=== PATIENT | female | born 1965 | race Asian ===

== ENCOUNTER 2018-10-07 14:30 | Inpatient (IN) | payer OTHER ==
[~2018-10-07] VITALS: Ht 160 cm; Wt 73.5 kg
--- NOTE | 2018-10-07 14:40 | NUR ---
ADMIT TO 2A, 53 YO FEMALE, AMBULATORY, AAOX3 WITH A C/O FEVER AND ABDOMENAL PAIN.
[2018-10-07] MEDS ORDERED: [UNRECOGNIZED DRUG - OTHER] (14:43)
[2018-10-07] MEDS ORDERED: PANTOPRAZOLE SODIUM 40 MG VIAL IV ONE (15:00)
[2018-10-07] MEDS ORDERED: IV NORMAL SALINE 1000 ML BAG IV ONE (15:00)
[2018-10-07] MEDS ORDERED: ONDANSETRON 4 MG/2 ML VIAL IV ONE (15:00)
[2018-10-07] MEDS ORDERED: ACETAMINOPHEN ES 500 MG TABLET PO ONE (15:00)
--- NOTE | 2018-10-07 15:00 | NUR ---
SEEN AND EXAMINED BY MD WITH NEW ORDERS. PT MEDICATED WITH TYLENOL ES 1GM PO FOR TEMP OF 102.5F ORDERED.
[2018-10-07] MEDS ORDERED: ACETAMINOPHEN ES 500 MG TABLET ONE (15:03)
[2018-10-07 15:18] LABS: BASOPHILS % (AUTO) 0.3 % (0.0-2.0); HEMATOCRIT 52.8 % (31.2-41.9); HEMOGLOBIN 17.6 g/dL (10.9-14.3); LYMPHOCYTES # (AUTO) 0.5 K/uL (20.0-40.0); LYMPHOCYTES % (AUTO) 3.3 % (20.5-51.5); MEAN CORPUSCULAR HEMOGLOBIN 28.6 uug (24.7-32.8); MEAN CORPUSCULAR HGB CONC 33 g/dL (32.3-35.6); MEAN CORPUSCULAR VOLUME 85.9 fL (75.5-95.3); MONOCYTES # (AUTO) 0.6 K/uL (2.0-10.0); NEUTROPHILS # (AUTO) 14.7 K/uL (1.8-8.9); NEUTROPHILS % (AUTO) 92.4 % (38.5-71.5); PLATELET COUNT (AUTO) 222 K/uL (179-408); RED BLOOD CELL COUNT(AUTO) 6.15 MIL/uL (3.63-4.92); WHITE BLOOD COUNT (AUTO) 15.9 K/uL (3.8-11.8)
--- NOTE | 2018-10-07 15:20 | NUR ---
STARTED IV LINE ON THE RT WRIST G22 AND STARTED IVF NS 1L INFUSING WIDE OPEN.
[2018-10-07] MEDS ORDERED: PANTOPRAZOLE SODIUM 40 MG VIAL ONE (15:26)
[2018-10-07] MEDS ORDERED: ONDANSETRON 4 MG/2 ML VIAL ONE (15:26)
[2018-10-07 15:29] LABS: CREATININE 1.1 mg/dL (0.6-1.3); POTASSIUM 3.2 mmol/L (3.5-5.1)
[2018-10-07 15:34] LABS: BILIRUBIN,DIRECT 0.2 mg/dL (0.0-0.2); BILIRUBIN,TOTAL 0.6 mg/dL (0.2-1.0); TOTAL PROTEIN, SERUM 6.8 g/dL (6.4-8.2)
[2018-10-07 15:40] LABS: BAND % (MANUAL) 16 % (0-10); LYMPHOCYTES % (MANUAL) 2 % (20-40); MONOCYTES % (MANUAL) 8 % (2-10); NEUTROPHILS % (MANUAL) 74 % (42-75)
[2018-10-07 16:31] LABS: *BILIRUBIN,URIN 1+ (NEGATIVE); *BLOOD, URINE 3+ (NEGATIVE); *CLARITY,URINE SLIGHTLY CLOUDY (CLEAR); *KETONES,URINE NEGATIVE (NEGATIVE); *UROBILINOGEN,URINE 0.2 E.U./dl (NORMAL); LEUKOCYTE ESTERASE ,URINE NEGATIVE (NEGATIVE); NITRITE, URINE NEGATIVE (NEGATIVE); UGLUCOSE NEGATIVE (NEGATIVE)
[2018-10-07 16:39] LABS: *COLOR,URINE AMBER (YELLOW)
[2018-10-07 16:43] LABS: RBC,URINE 80-100 /HPF (0-3); SQUAMOUS EPITHELIAL CELL,UR FEW /HPF (NONE SEEN)
[2018-10-07 16:44] LABS: MUCUS,URINE MANY /LPF (0-FEW)
--- NOTE | 2018-10-07 16:50 | NUR ---
PT HAS A LIQUID BLOODY BM IN THE BATHROOM. AWARE. CT SCAN ABDOMEN ORDERED.
--- NOTE | 2018-10-07 16:55 | NUR ---
GIVEN SOME JELLO TO EAT, OK WITH . TOLERATED WELL.
--- NOTE | 2018-10-07 17:05 | NUR ---
PT IS ADMITTED TO 317. REPORT GIVEN TO ROMMEL AKINS.
--- NOTE | 2018-10-07 17:10 | NUR ---
PT GOING TO CT SCAN VIA W/C, THEN GOING STRAIGHT TO [facility] 317 AFTER.
--- NOTE | 2018-10-07 17:11 | NUR ---
STOOL SENT TO LAB.
[2018-10-07 17:30] VITALS: BP 136/85
--- NOTE | 2018-10-07 17:30 | NUR ---
Patient is admit to med surge, VS stable WNL, no distress, complain of abd pain and diarrhea which will be addressed with md orders safety initiated care plan started
--- NOTE | 2018-10-07 17:30 | NUR ---
NOTIFIED FLOOR RN ROMMEL, BELONGING LIST NOT DONE PT WENT STRAIGHT TO CT.
[2018-10-07] MEDS ORDERED: ACETAMINOPHEN 650 MG SUPP.RECT RC PRN (18:15)
[2018-10-07] MEDS: MORPHINE SULFATE 2 MG/1 ML DISP.SYRIN IV PRN ×2 (19:00→21:53)
[2018-10-07] MEDS: POTASSIUM CHLORIDE 20 MEQ in IV D5/ 0.9% NACL 1,000 ML IV PRN (19:05)
[2018-10-07] MEDS: LEVOFLOXACIN 500 MG/D5W 500 MG in PREMIXED 1 EACH IV SCH (19:05)
--- NOTE | 2018-10-07 19:22 | NUR ---
Patient in Bed, awake and verbally responsive. No signs of Respiratory distress noted. with complain of Pain on Lower Abdomen, Morphine given as ordered. Will Assess after 30 minutes. IV antibiotic started. All needs attended and met. Will Endorse to Oncoming Nurse.
--- NOTE | 2018-10-07 20:00 | NUR ---
Received patient laying in bed. MD at bedside. Patient c/o abdominal pain. In room air. IVF infusing on the right hand. Patient is alert and oriented x 4. Ambulatory with minimal assist. NPO. Safety initiated. Call light within reach. Will closely monitor.
[2018-10-07] MEDS: FAMOTIDINE. 20 MG/2 ML VIAL IV SCH (20:28)
[2018-10-07 20:36] VITALS: BP 134/88
[2018-10-07] MEDS: METRONIDAZOLE 500 MG/NS 100ML 500 MG in PREMIXED 1 EACH IV SCH (21:52)
[2018-10-08] MEDS: ONDANSETRON 4 MG/2 ML VIAL IV PRN ×5 (01:03→18:07)
[2018-10-08] MEDS: MORPHINE SULFATE 2 MG/1 ML DISP.SYRIN IV PRN ×5 (01:04→18:07)
[2018-10-08 04:48] VITALS: BP 109/69
[2018-10-08] MEDS: METRONIDAZOLE 500 MG/NS 100ML 500 MG in PREMIXED 1 EACH IV SCH ×3 (05:00→22:42)
--- NOTE | 2018-10-08 05:48 | NUR ---
Patient was not able to have a good night's rest. Patient went multiple times to the restroom to make a bowel movement. Patient's stool was dark red in color with some sediments. Patient c/o pain in the abdomen and nausea but no vomiting. Patient remains in room air. Patient's IV on the right hand, patent and intact with IVF infusing. Vital signs stable with no temperature. Patient ambulates with standby assists. Maintained NPO. Safety and comfort measures maintained t/o shift. All meds given as ordered. All needs met.
--- NOTE | 2018-10-08 07:20 | NUR ---
Patient in bed resting with no s/s of acute distress noted at this time. Patient is NPO. No c/o pain at this time . Will continue to monitor.
[2018-10-08] MEDS: FAMOTIDINE. 20 MG/2 ML VIAL IV SCH ×2 (09:17→20:04)
[2018-10-08] MEDS: POTASSIUM CHLORIDE 20 MEQ in IV D5/ 0.9% NACL 1,000 ML IV PRN (09:50)
[2018-10-08 10:37] LABS: BASOPHILS % (AUTO) 0.1 % (0.0-2.0); HEMATOCRIT 57.3 % (31.2-41.9); HEMOGLOBIN 19.1 g/dL (10.9-14.3); LYMPHOCYTES # (AUTO) 0.8 K/uL (20.0-40.0); LYMPHOCYTES % (AUTO) 4.7 % (20.5-51.5); MEAN CORPUSCULAR HEMOGLOBIN 28.7 uug (24.7-32.8); MEAN CORPUSCULAR HGB CONC 33 g/dL (32.3-35.6); MEAN CORPUSCULAR VOLUME 86.2 fL (75.5-95.3); MONOCYTES # (AUTO) 0.9 K/uL (2.0-10.0); MONOCYTES % (AUTO) 5.6 % (0.0-11.0); NEUTROPHILS # (AUTO) 14.2 K/uL (1.8-8.9); NEUTROPHILS % (AUTO) 89.6 % (38.5-71.5); PLATELET COUNT (AUTO) 187 K/uL (179-408); WHITE BLOOD COUNT (AUTO) 15.9 K/uL (3.8-11.8)
[2018-10-08 10:47] LABS: CREATININE 1.4 mg/dL (0.6-1.3)
[2018-10-08 10:53] LABS: BILIRUBIN,TOTAL 0.3 mg/dL (0.2-1.0); MAGNESIUM 1.9 mg/dL (1.8-2.4); PHOSPHOROUS 3.1 mg/dL (2.5-4.9); TOTAL PROTEIN, SERUM 5.4 g/dL (6.4-8.2)
[2018-10-08 10:59] LABS: RED BLOOD CELL COUNT(AUTO) 6.65 MIL/uL (3.63-4.92)
[2018-10-08 11:26] VITALS: BP 122/84
[2018-10-08 11:30] LABS: BAND % (MANUAL) 25 % (0-10); LYMPHOCYTES % (MANUAL) 6 % (20-40); METAMYELOCYTES % 2 % (0-1); MONOCYTES % (MANUAL) 5 % (2-10); NEUTROPHILS % (MANUAL) 62 % (42-75)
[2018-10-08 15:11] VITALS: BP 110/82
[2018-10-08] MEDS: LEVOFLOXACIN 500 MG/D5W 500 MG in PREMIXED 1 EACH IV SCH (18:18)
--- NOTE | 2018-10-08 18:50 | NUR ---
Patient resting in bed with no s/s of acute distress noted at this time. C/O pain and prn pain meds given as ordered. will continue to monitor.call light within reached.
--- NOTE | 2018-10-08 20:00 | NUR ---
Received patient laying in bed. Patient is alert and oriented x 4. Patient c/o abdominal pain but "its not as bad as yesterday. Diet was advanced to clear liquid diet. According to patient, she is tolerating it. Patient reports multiple trips to the restroom. In room air. IVF infusing on the right hand. Ambulatory with minimal assist. Safety initiated. Call light within reach. Will closely monitor.
[2018-10-08 20:05] VITALS: BP 139/97
[2018-10-09] MEDS: MORPHINE SULFATE 2 MG/1 ML DISP.SYRIN IV PRN ×5 (03:43→22:26)
[2018-10-09] MEDS: ONDANSETRON 4 MG/2 ML VIAL IV PRN ×3 (03:43→22:27)
--- NOTE | 2018-10-09 03:43 | NUR ---
Emesis x 1. She drank the Ensure strawberry clear liquid drink and described her emesis as color pink as the Ensure drink. Zofran given. Will continue to monitor.
--- NOTE | 2018-10-09 05:29 | NUR ---
Patient slept intermittently t/o shift. C/O abd. pain and emesis x 1. Medication given, stated relief. Patient remains A/O x 4. Ambulatory with standby assists. Patient's IV on the right hand got infiltrated. Re-started an IV on the left FA, patent and intact. Bowels sounds active. Patient remains on clear liquid diet, not tolerating at the moment. Vital signs stable. Good urine output. All meds given as ordered. All needs met. Safety and comfort measures maintained t/o shift.
[2018-10-09 05:53] LABS: HEMATOCRIT 51.5 % (31.2-41.9); HEMOGLOBIN 17.2 g/dL (10.9-14.3); MEAN CORPUSCULAR HEMOGLOBIN 28.6 uug (24.7-32.8); MEAN CORPUSCULAR HGB CONC 33 g/dL (32.3-35.6); MEAN CORPUSCULAR VOLUME 85.8 fL (75.5-95.3); PLATELET COUNT (AUTO) 193 K/uL (179-408); RED BLOOD CELL COUNT(AUTO) 6.01 MIL/uL (3.63-4.92); WHITE BLOOD COUNT (AUTO) 17.2 K/uL (3.8-11.8)
[2018-10-09] MEDS: METRONIDAZOLE 500 MG/NS 100ML 500 MG in PREMIXED 1 EACH IV SCH ×3 (05:54→22:11)
[2018-10-09 06:04] LABS: BILIRUBIN,TOTAL 0.3 mg/dL (0.2-1.0); CREATININE 1.5 mg/dL (0.6-1.3); MAGNESIUM 1.7 mg/dL (1.8-2.4); PHOSPHOROUS 2.6 mg/dL (2.5-4.9); POTASSIUM 4.1 mmol/L (3.5-5.1); TOTAL PROTEIN, SERUM 5.1 g/dL (6.4-8.2)
[2018-10-09 06:07] LABS: THYROID STIMULATING HORMONE 0.344 mIU/mL (0.358-3.740)
[2018-10-09 06:34] VITALS: BP 130/66
[2018-10-09 07:01] LABS: BAND % (MANUAL) 32 % (0-10); BASOPHILS % (MANUAL) 0 % (0-2); EOSINOPHILS % (MANUAL) 0 % (0-8); LYMPHOCYTES % (MANUAL) 4 % (20-40); MONOCYTES % (MANUAL) 12 % (2-10); NEUTROPHILS % (MANUAL) 52 % (42-75)
--- NOTE | 2018-10-09 07:51 | NUR ---
Awake, alert, oriented x 4. IVF infusing. With abdominal pain. Discussed plan of care
[2018-10-09] MEDS: FAMOTIDINE. 20 MG/2 ML VIAL IV SCH (08:30)
--- NOTE | 2018-10-09 08:30 | NUR ---
With abdominal pain and nausea. Morphine and Zofran given.
[2018-10-09] MEDS: POTASSIUM CHLORIDE 20 MEQ in IV D5/ 0.9% NACL 1,000 ML IV PRN (10:58)
[2018-10-09 11:52] VITALS: BP 142/93
[2018-10-09] MEDS ORDERED: MAGNESIUM SULFATE/D5W 100 ML IV SCH (15:00)
--- NOTE | 2018-10-09 15:44 | NUR ---
Patient not tolerating clear liquid diet and still abdominal pain. Dr. Cohn informed with orders. NPO instructed
[2018-10-09 16:00] VITALS: BP 138/91
--- NOTE | 2018-10-09 18:09 | NUR ---
NPO maintained. IVF infusing.
[2018-10-09] MEDS: LEVOFLOXACIN 500 MG/D5W 500 MG in PREMIXED 1 EACH IV SCH (18:31)
--- NOTE | 2018-10-09 19:20 | NUR ---
Received patient lying in bed. AAOx4. In no acute distress. Pain on abdominal area tolerable at this time per patient. Denies any SOB. IV site on left FA intact and patent. IVF infusing. NPO status. Needs assessed and attended to. Safety measure initiated and call schilling within reach.
[2018-10-09 20:17] VITALS: BP 117/79
[2018-10-09] MEDS ORDERED: FAMOTIDINE 20 MG TABLET PO SCH (21:00)
[2018-10-10] MEDS: POTASSIUM CHLORIDE 20 MEQ in IV D5/ 0.9% NACL 1,000 ML IV PRN (03:20)
[2018-10-10] MEDS: METRONIDAZOLE 500 MG/NS 100ML 500 MG in PREMIXED 1 EACH IV SCH ×3 (05:49→21:15)
--- NOTE | 2018-10-10 06:32 | NUR ---
Remains AOx4. In no acute distress. Morphine 2mg IV given x1 for complain of abdominal pain and effective. Complain of nausea and given Zofran 4mg IVX1 and effective. Denies any SOB. IV site on left FA intact and patent. IVF infusing. No adverse reaction from IV ABX. Remains NPO. Needs attended to and met. Patient had total of 6 BM still foamy, brown in color and with some soft stool per patient. Safety measure maintained and call schilling within reach.
[2018-10-10 06:47] VITALS: BP 120/65
--- NOTE | 2018-10-10 07:15 | NUR ---
patient alert and oriented and awake , able to make needs known, no s/s of scute distress noted at this time. no c/o pain at this time , safety and comfort provided at all times will continue to monitor.
[2018-10-10 07:57] LABS: CREATININE 1.1 mg/dL (0.6-1.3); MAGNESIUM 2.2 mg/dL (1.8-2.4); PHOSPHOROUS 1.6 mg/dL (2.5-4.9)
[2018-10-10 08:25] LABS: HEMATOCRIT 43.3 % (31.2-41.9); HEMOGLOBIN 14.3 g/dL (10.9-14.3); MEAN CORPUSCULAR HEMOGLOBIN 28.5 uug (24.7-32.8); MEAN CORPUSCULAR HGB CONC 33 g/dL (32.3-35.6); MEAN CORPUSCULAR VOLUME 86.3 fL (75.5-95.3); PLATELET COUNT (AUTO) 173 K/uL (179-408); RED BLOOD CELL COUNT(AUTO) 5.02 MIL/uL (3.63-4.92); WHITE BLOOD COUNT (AUTO) 15.4 K/uL (3.8-11.8)
[2018-10-10] MEDS ORDERED: FAMOTIDINE. 20 MG/2 ML VIAL IV SCH (09:00)
[2018-10-10 10:02] LABS: BAND % (MANUAL) 15 % (0-10); BASOPHILS % (MANUAL) 0 % (0-2); EOSINOPHILS % (MANUAL) 0 % (0-8); LYMPHOCYTES % (MANUAL) 10 % (20-40); MONOCYTES % (MANUAL) 6 % (2-10); NEUTROPHILS % (MANUAL) 69 % (42-75)
[2018-10-10] MEDS ORDERED: SODIUM PHOSPHATE MM 15 MM in IV DEXTROSE 5% 250 ML IV ONE (10:45)
[2018-10-10 11:19] VITALS: BP 125/64
[2018-10-10 15:23] VITALS: BP 115/80
--- NOTE | 2018-10-10 15:30 | NUR ---
Seen by GT Dr. Dee Dee Mak with New oreder of clear liquid diet and D/C NPO.
[2018-10-10] MEDS: VANCOMYCIN FOR PO/GT/NG USE PO SCH ×2 (18:14→23:41)
[2018-10-10] MEDS: LIDOCAINE 5% OINT 35.44 GM TUBE TOP SCH (18:37)
[2018-10-10] MEDS: LEVOFLOXACIN 500 MG/D5W 500 MG in PREMIXED 1 EACH IV SCH (18:38)
--- NOTE | 2018-10-10 19:20 | NUR ---
Received patient lying in bed. AAOx4. In no acute distress. Complained of abd. pain, will provide pain medication per order. Denies any SOB. IV site on right wrist intact and patent. IVF infusing. Needs assessed and attended to. Safety measure initiated and call schilling within reach.
--- NOTE | 2018-10-10 19:34 | NUR ---
patient alert and oriented and awake watching TV , able to make needs known, no s/s of acute distress noted at this time. no c/o pain at this time , safety and comfort provided at all times will continue to monitor.
[2018-10-10 20:06] VITALS: BP 120/58
[2018-10-10] MEDS: MORPHINE SULFATE 2 MG/1 ML DISP.SYRIN IV PRN (21:19)
[2018-10-11] MEDS: POTASSIUM CHLORIDE 20 MEQ in IV D5/ 0.9% NACL 1,000 ML IV PRN ×2 (02:33→21:38)
[2018-10-11] MEDS: METRONIDAZOLE 500 MG/NS 100ML 500 MG in PREMIXED 1 EACH IV SCH ×3 (05:06→21:37)
[2018-10-11] MEDS: VANCOMYCIN FOR PO/GT/NG USE PO SCH ×4 (05:06→23:02)
[2018-10-11 06:16] VITALS: BP 122/65
--- NOTE | 2018-10-11 06:17 | NUR ---
AOx4. In no acute distress. Morphine 2mg IV given x1 for complain of abdominal pain and effective. Denies any SOB. IV site on right wrist intact and patent. IVF infusing. No adverse reaction from IV and PO ABX. Needs attended to and met. Patient had total of 2 BM greenish in color, soft stool per patient. Safety measure maintained and call schilling within reach.
[2018-10-11 06:39] LABS: BASOPHILS % (AUTO) 0.1 % (0.0-2.0); EOSINOPHILS % (AUTO) 0.4 % (0.0-7.0); HEMATOCRIT 39.8 % (31.2-41.9); HEMOGLOBIN 13.2 g/dL (10.9-14.3); LYMPHOCYTES # (AUTO) 1.2 K/uL (20.0-40.0); LYMPHOCYTES % (AUTO) 10.8 % (20.5-51.5); MEAN CORPUSCULAR HEMOGLOBIN 28.5 uug (24.7-32.8); MEAN CORPUSCULAR HGB CONC 33 g/dL (32.3-35.6); MEAN CORPUSCULAR VOLUME 85.6 fL (75.5-95.3); MONOCYTES # (AUTO) 1.2 K/uL (2.0-10.0); MONOCYTES % (AUTO) 10.8 % (0.0-11.0); NEUTROPHILS % (AUTO) 77.9 % (38.5-71.5); PLATELET COUNT (AUTO) 177 K/uL (179-408); RED BLOOD CELL COUNT(AUTO) 4.65 MIL/uL (3.63-4.92); WHITE BLOOD COUNT (AUTO) 11.5 K/uL (3.8-11.8)
[2018-10-11 06:53] LABS: MAGNESIUM 1.9 mg/dL (1.8-2.4); PHOSPHOROUS 2.4 mg/dL (2.5-4.9); POTASSIUM 3.3 mmol/L (3.5-5.1)
--- NOTE | 2018-10-11 07:10 | NUR ---
PATIENT AOX4 IN BED SLEEPING EASY TO AROUSE. PATIENT DENIES N/V AT THIS TIME. PATIENT STATED THAT LAST BOWEL MOVEMENT WAS AT AROUND 0430 AND THAT IT WAS LOOSE AND GREEN. PATIENT COMPLAINED OF MILD ABDOMEN DISCOMFORT. DENIES SEVERE PAIN OR SOB. RT. WRIST IN INTACT. BED IN LOW AND LOCKED POSITION. CALL LIGHT IN REACH. WILL CONTINUE TO MONITOR.
[2018-10-11 07:48] LABS: *OCCULT BLOOD STOOL POSITIVE (NEGATIVE)
[2018-10-11 07:50] LABS: BAND % (MANUAL) 7 % (0-10); EOSINOPHILS % (MANUAL) 2 % (0-8); LYMPHOCYTES % (MANUAL) 6 % (20-40); MONOCYTES % (MANUAL) 11 % (2-10); NEUTROPHILS % (MANUAL) 74 % (42-75)
[2018-10-11] MEDS: PANTOPRAZOLE SODIUM 40 MG VIAL IV SCH (08:43)
[2018-10-11] MEDS: LIDOCAINE 5% OINT 35.44 GM TUBE TOP SCH ×2 (08:44→18:38)
[2018-10-11] MEDS ORDERED: POTASSIUM CHLORIDE 10 MEQ TAB.PRT.SR PO ONE (10:45)
[2018-10-11 11:26] VITALS: BP 116/76
[2018-10-11] MEDS: POTASSIUM PHOSPHATE MM 5 MMOL in IV DEXTROSE 5% 100 ML IV SCH ×2 (11:36→16:01)
[2018-10-11 15:21] VITALS: BP 124/76
--- NOTE | 2018-10-11 19:30 | NUR ---
patient received in bed a/ox4. no signs of acute distress. safety and comfort measures provided. will continue plan of care accordingly.
--- NOTE | 2018-10-11 19:40 | NUR ---
PATIENT AOX4. COMPLAINED OF MILD CRAMPING TO ABDOMEN BUT DID NOT WANT PAIN MEDICATION. MB GREEN IN COLOR. PATIENT STABLE THROUGHOUT THE SHIFT. REPORT GIVEN
[2018-10-11] MEDS: LEVOFLOXACIN 500 MG/D5W 500 MG in PREMIXED 1 EACH IV SCH (19:57)
[2018-10-11 20:04] VITALS: BP 128/69
[2018-10-12] MEDS: METRONIDAZOLE 500 MG/NS 100ML 500 MG in PREMIXED 1 EACH IV SCH (05:06)
[2018-10-12] MEDS: VANCOMYCIN FOR PO/GT/NG USE PO SCH ×2 (05:07→12:18)
[2018-10-12 05:59] VITALS: BP 116/74
[2018-10-12 06:51] LABS: CREATININE 0.8 mg/dL (0.6-1.3); POTASSIUM 3.3 mmol/L (3.5-5.1)
[2018-10-12 06:52] LABS: MAGNESIUM 1.7 mg/dL (1.8-2.4)
--- NOTE | 2018-10-12 06:53 | NUR ---
patient slept intermittently throughout the night. a/ox 4. no signs of acute distress. safety and comfort measures provided. all medications administered and tolerated well. will endorse care accordingly.
--- NOTE | 2018-10-12 07:15 | NUR ---
received patient in bed laying comfortably with no c/o pain at this time, no s/s of scute distress noted, safety measures and comfort provided at all times.
[2018-10-12] MEDS: POTASSIUM CHLORIDE 20 MEQ in IV D5/ 0.9% NACL 1,000 ML IV PRN (09:05)
[2018-10-12] MEDS: PANTOPRAZOLE SODIUM 40 MG VIAL IV SCH (09:26)
[2018-10-12] MEDS: LIDOCAINE 5% OINT 35.44 GM TUBE TOP SCH (09:26)
[2018-10-12 09:32] LABS: BASOPHILS % (AUTO) 0.3 % (0.0-2.0); EOSINOPHILS # (AUTO) 0.2 K/uL (0.0-0.7); EOSINOPHILS % (AUTO) 1.6 % (0.0-7.0); HEMATOCRIT 37.9 % (31.2-41.9); HEMOGLOBIN 12.9 g/dL (10.9-14.3); LYMPHOCYTES # (AUTO) 1.3 K/uL (20.0-40.0); LYMPHOCYTES % (AUTO) 12.1 % (20.5-51.5); MEAN CORPUSCULAR HEMOGLOBIN 28.7 uug (24.7-32.8); MEAN CORPUSCULAR HGB CONC 34 g/dL (32.3-35.6); MEAN CORPUSCULAR VOLUME 84.3 fL (75.5-95.3); MONOCYTES # (AUTO) 1.1 K/uL (2.0-10.0); MONOCYTES % (AUTO) 9.9 % (0.0-11.0); NEUTROPHILS # (AUTO) 8.4 K/uL (1.8-8.9); NEUTROPHILS % (AUTO) 76.1 % (38.5-71.5); PLATELET COUNT (AUTO) 199 K/uL (179-408)
[2018-10-12 11:08] VITALS: BP 113/76
[2018-10-12] MEDS ORDERED: VANC500V PO (12:13)
[2018-10-12] MEDS ORDERED: LEVO500T2 PO (12:13)
[2018-10-12] MEDS ORDERED: POTASSIUM CHLORIDE 20 MEQ TAB.PRT.SR PO ONE (12:15)
[2018-10-12] MEDS ORDERED: MAGNESIUM OXIDE 400 MG TABLET PO ONE (12:15)
--- NOTE | 2018-10-12 14:30 | NUR ---
Received orders to discharge patient to home . Discharge instruction given and prescribe medications explained to patient. No s/s of acute distress noted at this time, no c/o pain at this time noted. belongings accounted for and signed. IV and ID band removed. Questions and concerns addressed.
== END 2018-10-12 14:30 | disposition home or self-care (01) | DRG 871 ==
LOC: ER 14:32 → MEDSURG3 17:06
PROVIDERS: ADMIT Internal Medicine; ATTEND Internal Medicine
DX: A41.9 Sepsis, unspecified organism (principal); N17.0 Acute kidney failure with tubular necrosis; A04.9 Bacterial intestinal infection, unspecified; E44.0 Moderate protein-calorie malnutrition; R18.8 Other ascites; E05.90 Thyrotoxicosis, unspecified without thyrotoxic crisis or storm; E87.6 Hypokalemia; Z68.28 Body mass index [BMI] 28.0-28.9, adult; K21.9 Gastro-esophageal reflux disease without esophagitis; R73.9 Hyperglycemia, unspecified; E86.0 Dehydration; E03.9 Hypothyroidism, unspecified; Z86.19 Personal history of other infectious and parasitic diseases; K64.4 Residual hemorrhoidal skin tags; I10 Essential (primary) hypertension
CPT/HCPCS: 36415; 83520; 83690; 83735; 84100; 84443; 85025; 85651; 86256; 86625; 86677; 87046; 87177; 87806; 89055; A4663; A9150; C9113; G0378; J1956; J2270; J2405; J3370; J3475; J3480; J3490; J7030; J7040; J7042; J7060